=== PATIENT | male | born 1950 | race Caucasian/White ===

== ENCOUNTER 2019-05-05 10:37 | Emergency (ER) | payer OTHER, MEDICAID ==
[~2019-05-05] VITALS: Ht 182.9 cm; Wt 81.6 kg
[2019-05-05 10:40] VITALS: Ht 182.9 cm; Wt 81.6 kg
[2019-05-05 14:30] VITALS: BP 145/78
== END 2019-05-05 14:30 | disposition home or self-care (01) ==
LOC: ED 10:37
DX: R53.1 Weakness (principal)